=== PATIENT | male | born 1990 | race Caucasian/White ===

== ENCOUNTER 2020-09-26 05:49 | Emergency (ER) | payer OTHER ==
[~2020-09-26] VITALS: Ht 190.5 cm; Wt 64.0 kg
[2020-09-26 05:54] VITALS: BP 144/96
[2020-09-26] MEDS ORDERED: LORazepam 1 MG tablet PO ONE (06:35)
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
[2020-09-26 07:10] LABS: BASOPHILS # (AUTO) 0.1 X10'3 (0-0.2); EOSINOPHILS # (AUTO) 0.1 X10'3 (0-0.9); MEAN CORPUSCULAR HEMOGLOBIN 29.9 PG (27.0-31.0); NEUTROPHILS # (AUTO) 2.9 X10'3 (1.8-7.7); WHITE BLOOD COUNT 8.2 X10'3 (4.5-11.0)
[2020-09-26 07:12] LABS: BASOPHILS % (AUTO) 1.2 % (0-1); EOSINOPHILS % (AUTO) 1.1 % (0-6); HEMATOCRIT 44.6 % (42.0-52.0); HEMOGLOBIN 15.7 g/dl (14.0-17.9); LYMPHOCYTES # (AUTO) 4.5 X10'3 (1.1-4.8); LYMPHOCYTES % (AUTO) 55.2 % (21-51); MEAN CORPUSCULAR HGB CONC 35.1 g/dL (33.0-36.5); MEAN CORPUSCULAR VOLUME 85.3 FL (78-98); MEAN PLATELET VOLUME 8.2 FL (7.4-10.4); MONOCYTES # (AUTO) 0.5 X10'3 (0-0.9); MONOCYTES % (AUTO) 6.6 % (2-12); NEUTROPHILS % (AUTO) 35.9 % (42-75); PLATELET COUNT 246 X10'3 (140-440); RED BLOOD COUNT 5.23 X10'6 (4.70-6.10); RED CELL DISTRIBUTION WIDTH 13.2 % (11.5-14.5)
[2020-09-26 07:16] LABS: ALANINE AMINOTRANSFERASE 52 U/L (12-78); ALBUMIN 4.8 G/DL (3.4-5.0); ALBUMIN/GLOBULIN RATIO 1.2 (1.1-1.5); ALKALINE PHOSPHATASE 86 IU/L (46-116); ANION GAP 15 (8-16); ASPARTATE AMINO TRANSFERASE 33 U/L (10-37); BILIRUBIN,TOTAL 0.8 MG/DL (0.1-1.0); BLOOD UREA NITROGEN 10 MG/DL (7-18); CALCIUM 8.9 MG/DL (8.5-10.1); CHLORIDE 105 MMOL/L (99-107); CREATININE 0.83 MG/DL (0.60-1.10); GLUCOSE 103 MG/DL (70-104); POTASSIUM 3.5 MMOL/L (3.5-5.1); SODIUM 147 MMOL/L (135-145); TOTAL CARBON DIOXIDE 27.2 MMOL/L (24-32); TOTAL PROTEIN 8.9 G/DL (6.4-8.2); eGFR > 90 ML/MIN
--- NOTE | 2020-09-26 08:00 | NUR ---
PT IS ASLEEP, REGULAR BREATHING PRESENT, NO NEEDS AT THIS TIME
[2020-09-26 08:17] LABS: TOTAL CELLS COUNTED 100
[2020-09-26 08:20] LABS: LARGE PLATELETS FEW; PLATELET ESTIMATE NORMAL
--- NOTE | 2020-09-26 09:00 | NUR ---
PT IS ASLEEP, REGULAR BREATHING OBSERVED, NO NEEDS AT THIS TIME
--- NOTE | 2020-09-26 10:00 | NUR ---
PT IS STILL ASLEEP, REGULAR BREATHING OBSERVED, NO NEEDS AT THIS TIME
--- NOTE | 2020-09-26 11:00 | NUR ---
PT IS STILL ASLEEP, REGULAR BREATHING OBSERVED, NO NEEDS AT THIS TIME
--- NOTE | 2020-09-26 12:08 | NUR ---
PT IS AWAKE, GAVE URINE SAMPLE, STATES HE IS NOT FEELING ANY BETTER
[2020-09-26 12:13] LABS: CLARITY,URINE CLEAR (Clear); COLOR,URINE YELLOW (Yellow); GLUCOSE, URINE NEGATIVE (Neg); KETONES,URINE NEGATIVE (Neg); LEUKOCYTE ESTERASE ,URINE NEGATIVE (Neg); NITRITES, URINE NEGATIVE (Neg); OCCULT BLOOD,URINE NEGATIVE (Neg); PH,URINE 6.5 (4.8-8.0); PROTEIN,URINE NEGATIVE (Neg); UROBILINOGEN,URINE 0.2 E.U/dL (0.2-1.0)
[2020-09-26 12:14] LABS: UA COLLECTION TYPE URINAL
[2020-09-26 12:20] LABS: URINE AMPHETAMINE SCREEN NEGATIVE (Neg); URINE BARBITUATE SCREEN NEGATIVE (Neg); URINE BENZODIAZEPINES SCREEN NEGATIVE (Neg); URINE CANNABINOID SCREEN NEGATIVE (Neg); URINE COCAINE SCREEN NEGATIVE (Neg); URINE METHADONE SCREEN NEGATIVE (Neg); URINE OPIATE SCREEN NEGATIVE (Neg); URINE PHENCYCLIDINE SCREEN NEGATIVE (Neg)
--- NOTE | 2020-09-26 13:58 | NUR ---
PT GIVEN LUNCH TRAY.
--- NOTE | 2020-09-26 14:00 | NUR ---
PT CALM, NO NEEDS AT THIS TIME
--- NOTE | 2020-09-26 15:00 | NUR ---
PT IS AWAKE, SUPINE, WATCHING PEOPLE WALK BY, NO NEEDS AT THIS TIME
--- NOTE | 2020-09-26 16:11 | NUR ---
PT IS ASLEEP, REGULAR BREATHING PRESENT, NO NEEDS AT THIS TIME
--- NOTE | 2020-09-26 17:11 | NUR ---
PT IS SLEEPING, REGULAR BREATHING PRESENT
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
== END 2020-09-26 19:06 | disposition home or self-care (01) ==
LOC: ER 05:49
DX: R45.851 Suicidal ideations (principal)
CPT/HCPCS: 80053; 80305; 80320; 81003; 84443; 85007; 85025; 99285